=== PATIENT | female | born 1950 | race American Indian/Alaskan Native ===

== ENCOUNTER 2018-01-17 13:18 | Emergency (ER) | payer MEDICARE, OTHER ==
[~2018-01-17] VITALS: Ht 160 cm; Wt 83.0 kg
[2018-01-17] MEDS ORDERED: GLUCOTROL XL5 MG PO (13:30)
[2018-01-17] MEDS ORDERED: SIMVASTATIN40 MG PO (13:31)
[2018-01-17] MEDS ORDERED: OMEPRAZOLE20 MG PO (13:31)
[2018-01-17] MEDS ORDERED: GLUCOPHAGE500 MG PO (13:31)
[2018-01-17] MEDS ORDERED: PLAQUENIL200 MG PO (13:32)
[2018-01-17] MEDS ORDERED: ZIAC 2.5-6.25 MG1 EA PO (13:32)
[2018-01-17] MEDS ORDERED: NORCO 5-325 TA1 EACH PO (13:54)
== END 2018-01-17 14:48 | disposition home or self-care (01) ==
LOC: ED 13:18
PROC: 2W3AX1Z Immobilization of Right Upper Arm using Splint (ICD-10-PCS; principal; 2018-01-17)
DX: S42.411A Displaced simple supracondylar fracture without intercondylar fracture of right humerus, initial encounter for closed fracture (principal); Z88.1 Allergy status to other antibiotic agents; Z79.899 Other long term (current) drug therapy; Z79.84 Long term (current) use of oral hypoglycemic drugs; W10.9XXA Fall (on) (from) unspecified stairs and steps, initial encounter; Y92.59 Other trade areas as the place of occurrence of the external cause
CPT/HCPCS: 29105; 73080; 99283